=== PATIENT | female | born 1955 ===

== ENCOUNTER 2021-06-27 05:20 | Day surgery (SDC) | payer OTHER ==
[~2021-06-27 05:20] MED LIST: GLIPIZ PO; HYZAAR 100-251 EACH PO; LIPIT PO; METFORMIN PO; RESTORI PO; SYNTHROID112 MCG PO; TYLENOL ARTHRI650 MG PO; XANAX2 MG PO
[2021-06-27] MEDS ORDERED: PERCOCET 5-3251 EACH PO (08:55)
[2021-06-27] MEDS ORDERED: COLACE100 MG PO (08:55)
== END 2021-06-27 14:04 | disposition home or self-care (01) ==
LOC: CIR.AMB 05:20
PROVIDERS: ATTEND Surgery
DX: K64.8 Other hemorrhoids (principal); Z20.822 Contact with and (suspected) exposure to COVID-19